=== PATIENT | female | born 1960 | race African-American/Black ===

== ENCOUNTER → 2016-10-28 | Outpatient (CLI) | payer OTHER ==
[~2016-10-28] MED LIST: CENTRUM COMPLE1 EACH PO; EPIPEN JR.0.15 MG/0. IM; HIGH POTENCY C600 MG PO; HUMALOG100 UNIT/1 SC; LANTUS 3 M100 UNITS1 SC; LASIX20 MG PO; MEDROL DOSEPAK4 MG PO; PROTONIX20 MG PO; SYMBICORT60 INHALA1 IH
== END | disposition home or self-care (01) ==
LOC: CDC 15:05
DX: R94.31 Abnormal electrocardiogram [ECG] [EKG] (principal)
CPT/HCPCS: 93000

== ENCOUNTER 2017-01-16 21:16 | Inpatient (IN) | payer OTHER ==
[~2017-01-16] VITALS: Ht 154.9 cm; Wt 91.2 kg
[~2017-01-16 21:16] MED LIST changes: +EPIPEN ADU0.3 MG/0.3 IM; +FLONASE16 G1 BOTH NARES; +LEVEMIR100 UNIT/2 SC; +LO-DOSE ASPIRIN81 M2 PO; +VICTOZA0.6 MG/0.1 SC; +ZYRTEC10 M3 PO
[2017-01-17] MEDS ORDERED: PROAIR HFA8.5 GM IH (09:48)
[2017-01-17 10:37] VITALS: BP 129/85
[2017-01-17 10:37] LABS: METH RESISTANT S AUREUS PCR NEGATIVE (NEGATIVE)
[2017-01-17 10:39] LABS: PROBE CHECK PASS; SPECIMEN PROCESSING CONTROL PASS
[2017-01-17 10:46] LABS: POINT-OF-CARE METER ID UU14174212; POINT-OF-CARE USER ID AHSRSCSLC11
[2017-01-17] MEDS ORDERED: HUMULIN N100 UNITS/ SC (13:31)
[2017-01-17] MEDS ORDERED: LANTUS 10100 UNITS/ SC (13:32)
[2017-01-17 15:10] LABS: POINT-OF-CARE METER ID UU13113675
[2017-01-17 18:09] LABS: POINT-OF-CARE METER ID UU14208750
[2017-01-17 19:05] VITALS: BP 153/70
[2017-01-17 23:10] VITALS: BP 162/71
[2017-01-18 00:41] LABS: POINT-OF-CARE METER ID UU14208750
[2017-01-18 03:28] VITALS: BP 139/63
[2017-01-18 06:54] LABS: POINT-OF-CARE METER ID UU14208750
[2017-01-18 07:47] LABS: EOSINOPHIL (%) 0 % (0-5); HEMATOCRIT 35.5 % (36.0-46.0); IMMATURE GRANULOCYTE (%) 0.3 % (0.0-0.7); INSTRUMENT ABS NEUTROPHIL CT 7.7 K/uL; LYMPHOCYTE COUNT 1.7 K/uL (1.0-2.8); MCH 27.2 PG (29.0-34.0); MCHC 32.7 G/DL (30.0-36.0); MCV 83.3 FL (83-99); MEAN PLAT.VOLUME 9.9 uM^3 (9.5-12.4); MONOCYTE (%) 8.3 % (3-12); MONOCYTE COUNT 0.9 K/uL (0-0.8); NEUTROPHIL (%) 74.6 % (45-76); NEUTROPHIL COUNT 7.7 K/uL (1.8-6.4); PLATELET COUNT 342 K/uL (156-360); RBC DIS.WIDTH-CV 14.6 % (11.8-14.6); RBC DIS.WIDTH-SD 44.1 % (39-53); WHITE BLOOD COUNT 10.4 K/uL (4.1-10.2)
[2017-01-18 08:02] LABS: RED BLOOD COUNT 4.26 M/uL (3.80-5.20)
[2017-01-18 08:17] VITALS: BP 145/66
== END 2017-01-18 12:25 | disposition home or self-care (01) | DRG 621 ==
LOC: ENRESERV 21:16 → 2SOUTH 01-17 08:57 → ENRESERV 01-17 11:59 → 2SOUTH 01-17 13:50 → 2EAST 01-17 16:58
PROVIDERS: Surgery
PROC: 0DB64Z3 Excision of Stomach, Percutaneous Endoscopic Approach, Vertical (ICD-10-PCS; principal; 2017-01-17)
DX: E66.01 Morbid (severe) obesity due to excess calories (principal); Z68.41 Body mass index [BMI] 40.0-44.9, adult; K76.0 Fatty (change of) liver, not elsewhere classified; K58.9 Irritable bowel syndrome, unspecified; K21.9 Gastro-esophageal reflux disease without esophagitis; M72.2 Plantar fascial fibromatosis; G47.33 Obstructive sleep apnea (adult) (pediatric); E11.65 Type 2 diabetes mellitus with hyperglycemia; J44.9 Chronic obstructive pulmonary disease, unspecified; G43.909 Migraine, unspecified, not intractable, without status migrainosus; E73.9 Lactose intolerance, unspecified; N39.498 Other specified urinary incontinence; M19.90 Unspecified osteoarthritis, unspecified site; Z83.3 Family history of diabetes mellitus; Z90.710 Acquired absence of both cervix and uterus; Z79.4 Long term (current) use of insulin; Z79.51 Long term (current) use of inhaled steroids; Z79.82 Long term (current) use of aspirin; Z87.891 Personal history of nicotine dependence; Z82.3 Family history of stroke
CPT/HCPCS: 82948; 85025; 87641; 99202; J0131; J0690; J1170; J1644; J1650; J1815; J2250; J2405; J2710; J2765; J3010; J3480; J7120; Q0169; S0020

== ENCOUNTER 2017-05-01 12:51 | Emergency (ER) | payer BC ==
[~2017-05-01] VITALS: Ht 151.1 cm; Wt 80.6 kg
[~2017-05-01 12:51] MED LIST changes: +HUMULIN N100 UNITS/ SC; +LANTUS 10100 UNITS/ SC; +PROAIR HFA8.5 GM IH
[2017-05-01 13:27] LABS: BASOPHIL (%) 0.6 % (0-1); EOSINOPHIL (%) 1.2 % (0-5); EOSINOPHIL COUNT 0.1 K/uL (0-0.3); HEMATOCRIT 42.1 % (36.0-46.0); IMMATURE GRANULOCYTE (%) 0.2 % (0.0-0.7); LYMPHOCYTE (%) 44.3 % (15-42); LYMPHOCYTE COUNT 2.9 K/uL (1.0-2.8); MCH 28.3 PG (29.0-34.0); MCHC 33.3 G/DL (30.0-36.0); MCV 85.1 FL (83-99); MONOCYTE (%) 9.3 % (3-12); MONOCYTE COUNT 0.6 K/uL (0-0.8); NEUTROPHIL (%) 44.4 % (45-76); NEUTROPHIL COUNT 2.9 K/uL (1.8-6.4); PLATELET COUNT 351 K/uL (156-360); RBC DIS.WIDTH-CV 14.7 % (11.8-14.6); RED BLOOD COUNT 4.95 M/uL (3.80-5.20); WHITE BLOOD COUNT 6.4 K/uL (4.1-10.2)
[2017-05-01 13:29] LABS: APPEARANCE CLEAR ((CLEAR)); BILIRUBIN NEGATIVE; BLOOD NEGATIVE; COLOR STRAW ((YELLOW)); GLUCOSE (STRIP) NEGATIVE; KETONES NEGATIVE; LEUKOCYTES SMALL; NITRITE NEGATIVE; PROTEIN (STRIP) NEGATIVE; SPECIFIC GRAVITY 1.003 (1.000-1.030); UROBILINOGEN 0.2 MG/DL (0.2-1.0)
[2017-05-01 13:35] LABS: CHLORIDE 107 mEq/L (99-109); POTASSIUM 4.2 mEq/L (3.7-5.4); SODIUM 142 mEq/L (136-147)
[2017-05-01 13:37] LABS: GLUCOSE 77 mg/dL (70-99)
[2017-05-01 13:38] LABS: BACTERIA RARE /HPF; EPITHELIAL CELLS RARE /HPF; MUCUS NONE SEEN /LPF; RED BLOOD CELLS 0-5 /HPF (0-5); UCUL ADDED? NO; WHITE BLOOD CELLS 0-5 /HPF (0-5)
[2017-05-01 13:41] LABS: CREATININE 0.7 mg/dL (0.6-1.3); GFR ESTIMATE (CALCULATED) > 59 mL/min/
[2017-05-01 13:42] LABS: UREA NITROGEN (BUN) 13 mg/dL (9-23)
[2017-05-01 13:48] LABS: TROP-I INTERPRETATION NEGATIVE; TROPONIN-I < 0.01 ng/mL (0.0-0.30)
[2017-05-01 16:21] LABS: TROP-I INTERPRETATION NEGATIVE; TROPONIN-I < 0.01 ng/mL (0.0-0.30)
[2017-05-01 18:51] VITALS: BP 151/86
== END 2017-05-01 19:35 | disposition home or self-care (01) ==
LOC: EME 12:51
PROVIDERS: Emergency Medicine
DX: R55 Syncope and collapse (principal); R07.89 Other chest pain; E11.9 Type 2 diabetes mellitus without complications; J44.9 Chronic obstructive pulmonary disease, unspecified; Z98.84 Bariatric surgery status; Z87.891 Personal history of nicotine dependence; Z79.4 Long term (current) use of insulin; Z88.2 Allergy status to sulfonamides; Z88.1 Allergy status to other antibiotic agents; Z88.8 Allergy status to other drugs, medicaments and biological substances; Z91.010 Allergy to peanuts
CPT/HCPCS: 71045; 71046; 71275; 80048; 81003; 84484; 85025; 85379; 93005; 99281; 99285; J1200; J2405; J2930; J7030